=== PATIENT | male | born 1955 | race Two or more races ===

== ENCOUNTER 2018-02-21 10:36 | Inpatient (IN) | payer OTHER ==
[~2018-02-21] VITALS: Ht 172.7 cm; Wt 125.1 kg
[2018-02-21] MEDS ORDERED: SODIUM CHLORIDE 0.9% 1,000 ML IV ONE (10:47)
[2018-02-21] MEDS ORDERED: diphenhdrAMINE HCL 50 MG/1 ML VL IV ONE (11:00)
[2018-02-21] MEDS ORDERED: methylPREDNISolone SOD SUCC 125 MG/2 ML VL IV ONE (11:00)
[2018-02-21 11:05] LABS: Basophils # (auto) 0 uL; Basophils % (auto) 0.4 % (0.0-2.0); Eosinophils # (auto) 0.7 uL; Eosinophils % (auto) 7.1 % (0.0-7.0); Hematocrit 43.4 % (41.0-53.0); Hemoglobin 14.3 g/dL (13.5-17.5); Lymphocytes # (auto) 1.2 uL; Lymphocytes % (auto) 12.6 % (10.0-50.0); Mean Corpuscular Hemoglobin 27.9 pg (28.0-32.0); Mean Corpuscular Volume 84.5 fL (80.0-100.0); Monocytes # (auto) 0.6 uL; Monocytes % (auto) 6.6 % (0.0-12.0); Neutrophils # (auto) 6.8 uL; Neutrophils % (auto) 73.3 % (37.0-80.0); Nucleated Red Blood Cells % 0.2 %; Platelet Count (auto) 337 10^3/uL (140-450); Red Blood Cells 5.13 10^6/uL (4.5-5.90); Red Cell Distribution Width 14.5 % (11.8-14.3); White Blood Cell 9.3 10^3/uL (4.4-10.8)
[2018-02-21 11:30] LABS: Alanine Aminotransferase 69 U/L (16-61); Albumin 3.2 g/dL (3.4-5.0); Alkaline Phosphatase 96 U/L (45-117); Anion Gap 8 (5-15); Aspartate Aminotransferase 31 U/L (15-37); BUN/Creatinine Ratio 13.4; Bilirubin, Total 0.2 mg/dL (0.2-1.0); Blood Urea Nitrogen 11 mg/dL (7-18); Calcium 8.5 mg/dL (8.5-10.1); Carbon Dioxide 22 mmol/L (21-32); Chloride 111 mmol/L (98-107); GFR African American 122 mL/min; GFR Non-African American 101 mL/min; Glucose 111 mg/dL (74-106); Magnesium 2.6 mg/dL (1.6-2.6); Potassium 3.7 mmol/L (3.5-5.1); Sodium 141 mmol/L (136-145); Total Protein 7.5 g/dL (6.4-8.2)
[2018-02-21] MEDS ORDERED: FAMOTIDINE (10MG/ML) 2ML VL IV ONE (12:15)
[2018-02-21] MEDS ORDERED: HYDROcodone-ACET 5/325MG TAB PO PRN (13:45)
[2018-02-21] MEDS ORDERED: PROMETHAZINE HCL 25 MG/ML 1ML IV PRN (13:45)
[2018-02-21] MEDS ORDERED: ACETAMINOPHEN 500 MG TAB PO PRN (13:45)
[2018-02-21] MEDS ORDERED: TEMAZEPAM 15 MG CAP PO PRN (13:45)
[2018-02-21] MEDS ORDERED: LORazepam 0.5 MG TAB PO PRN (13:45)
[2018-02-21] MEDS ORDERED: LACTULOSE 20Gm/30ML SOLN PO PRN (13:45)
[2018-02-21] MEDS ORDERED: NITROGLYCERIN 0.4 MG SL TAB SL PRN (13:45)
[2018-02-21] MEDS ORDERED: MORPHINE SULFATE 4 MG/ML SYR/VIAL IV PRN ×2 (13:45)
[2018-02-21] MEDS: SODIUM CHLORIDE 0.9% 1,000 ML IV SCH ×2 (14:24→23:44)
[2018-02-21 15:28] VITALS: BP 144/95
[2018-02-21 17:00] VITALS: BP 144/95
[2018-02-21] MEDS ORDERED: ASPI81TA27 PO (17:17)
[2018-02-21] MEDS: methylPREDNISolone SOD SUCC 40 MG/ML VL IV SCH ×2 (17:49→23:40)
[2018-02-21 22:00] VITALS: BP 143/94
[2018-02-21] MEDS: FAMOTIDINE 20 MG TAB PO SCH (23:40)
[2018-02-22 05:00] VITALS: BP 127/75
[2018-02-22] MEDS: methylPREDNISolone SOD SUCC 40 MG/ML VL IV SCH ×2 (05:56→11:52)
[2018-02-22 07:19] LABS: Cholesterol 152 mg/dL (< 200); HDL Cholesterol 32 mg/dL (40-59); LDL Cholesterol 112 mg/dL (< 100); Triglycerides 96 mg/dL (< 150)
[2018-02-22 09:00] VITALS: BP 123/68
[2018-02-22] MEDS: FAMOTIDINE 20 MG TAB PO SCH (09:40)
[2018-02-22] MEDS ORDERED: ENOXAPARIN SOD 40 MG/0.4 ML SYRINGE SC SCH (10:00)
[2018-02-22 13:00] VITALS: BP 126/70
[2018-02-22] MEDS: SODIUM CHLORIDE 0.9% 1,000 ML IV SCH (14:38)
== END 2018-02-22 15:34 | disposition home or self-care (01) | DRG 811 ==
LOC: ER 10:39 → TELE 10:40 → TELE-CENTR 15:38
PROVIDERS: ADMIT Internal Medicine; ATTEND Internal Medicine
DX: T78.3XXA Angioneurotic edema, initial encounter (principal); Z68.41 Body mass index [BMI] 40.0-44.9, adult; T78.1XXA Other adverse food reactions, not elsewhere classified, initial encounter; E66.01 Morbid (severe) obesity due to excess calories; X58.XXXA Exposure to other specified factors, initial encounter; F12.90 Cannabis use, unspecified, uncomplicated; Z82.49 Family history of ischemic heart disease and other diseases of the circulatory system
CPT/HCPCS: 36415; 80053; 80061; 83735; 84484; 85025; 85652; 94761; 96361; 96375; J3490

== ENCOUNTER 2018-09-14 13:12 | Emergency (ER) | payer MEDICAID, OTHER ==
[~2018-09-14] VITALS: Ht 172.7 cm; Wt 113.4 kg
[~2018-09-14 13:12] MED LIST: ASPI81TA27 PO
[2018-09-14 13:33] VITALS: BP 107/79
== END 2018-09-14 15:28 | disposition home or self-care (01) ==
LOC: ER 13:12
DX: S00.452A Superficial foreign body of left ear, initial encounter (principal); F12.10 Cannabis abuse, uncomplicated; W22.8XXA Striking against or struck by other objects, initial encounter; Y93.89 Activity, other specified; Y92.89 Other specified places as the place of occurrence of the external cause; Y99.8 Other external cause status
CPT/HCPCS: 69200

== ENCOUNTER 2018-11-23 06:48 | Emergency (ER) | payer MEDICAID ==
[~2018-11-23] VITALS: Ht 172.7 cm; Wt 105.7 kg
[2018-11-23 08:51] LABS: Urine Bacteria FEW /hpf (None Seen); Urine Blood 1+ /uL (Negative); Urine Mucus FEW (None Seen); Urine Specific Gravity 1.018 (1.001-1.035); Urine WBC 2684 /hpf (0 - 3); Urine WBC Clumps PRESENT /hpf (None Seen)
[2018-11-23] MEDS ORDERED: cefTRIAXone SOD 1,000 MG VL IM ONE (09:30)
[2018-11-23 10:59] VITALS: BP 113/76
== END 2018-11-23 11:02 | disposition home or self-care (01) ==
LOC: ER 06:48
DX: N39.0 Urinary tract infection, site not specified (principal); Z85.46 Personal history of malignant neoplasm of prostate; F12.10 Cannabis abuse, uncomplicated
CPT/HCPCS: 81001; 96372; 99283; J0696

== ENCOUNTER 2018-11-23 19:22 | Emergency (ER) | payer MEDICAID ==
[~2018-11-23] VITALS: Ht 172.7 cm; Wt 106.1 kg
[2018-11-23] MEDS ORDERED: LIDOCAINE VISCOUS 2% 15ML UD MT ONE (21:00)
[2018-11-23] MEDS ORDERED: MEPERIDINE HCL (50 MG/ML) 1 ML VIAL IM ONE (21:15)
[2018-11-23] MEDS ORDERED: ONDANSETRON ODT 4 MG TAB PO ONE (21:15)
[2018-11-23] MEDS ORDERED: PHENAZOPYRIDINE HCL 100 MG TAB PO ONE (21:15)
[2018-11-23 22:08] LABS: Basophils # (auto) 0 uL; Basophils % (auto) 0.4 % (0.0-2.0); Eosinophils # (auto) 0 uL; Eosinophils % (auto) 0.1 % (0.0-7.0); Hematocrit 38.6 % (41.0-53.0); Hemoglobin 13.3 g/dL (13.5-17.5); Lymphocytes # (auto) 0.5 uL; Lymphocytes % (auto) 5.5 % (10.0-50.0); Mean Corpuscular Hemoglobin 28.5 pg (28.0-32.0); Mean Corpuscular Hgb Conc. 34.4 g/dL (32.0-36.0); Mean Corpuscular Volume 82.8 fL (80.0-100.0); Monocytes # (auto) 0.7 uL; Neutrophils # (auto) 8.8 uL; Nucleated Red Blood Cells % 0.1 %; Platelet Count (auto) 237 10^3/uL (140-450); Red Blood Cells 4.66 10^6/uL (4.5-5.90); Red Cell Distribution Width 14.3 % (11.8-14.3); White Blood Cell 10.1 10^3/uL (4.4-10.8)
[2018-11-23 22:09] VITALS: BP 109/49
[2018-11-23] MEDS ORDERED: AZITHROMYCIN 250 MG TAB PO ONE (22:15)
[2018-11-23] MEDS ORDERED: cefTRIAXone SOD 1,000 MG VL IM ONE (22:15)
[2018-11-23] MEDS ORDERED: LIDOCAINE 1% HCL (LOCAL ANESTH.) INJ 20ML MDV ONE (22:25)
[2018-11-23 22:26] LABS: Albumin 3.4 g/dL (3.4-5.0); BUN/Creatinine Ratio 18.1; Calcium 8.9 mg/dL (8.5-10.1); Potassium 3.7 mmol/L (3.5-5.1)
[2018-11-23 22:29] LABS: Bilirubin, Total 0.3 mg/dL (0.2-1.0); Total Protein 7.5 g/dL (6.4-8.2)
[2018-11-23 22:53] LABS: Urine Bacteria FEW /hpf (None Seen); Urine Blood 1+ /uL (Negative); Urine Specific Gravity 1.013 (1.001-1.035); Urine WBC 180 /hpf (0 - 3)
== END 2018-11-23 23:26 | disposition home or self-care (01) ==
LOC: ER 19:22
DX: N32.0 Bladder-neck obstruction (principal); N39.0 Urinary tract infection, site not specified; F12.10 Cannabis abuse, uncomplicated; Z79.82 Long term (current) use of aspirin
CPT/HCPCS: 36415; 51702; 74176; 80053; 81001; 85025; 96372; 99284; J0696; J2001; J2175; Q0162

== ENCOUNTER 2018-11-25 11:08 | Emergency (ER) | payer MEDICAID ==
[~2018-11-25] VITALS: Ht 172.7 cm; Wt 106.1 kg
[2018-11-25 11:14] VITALS: BP 128/81
== END 2018-11-25 11:26 | disposition home or self-care (01) ==
LOC: ER 11:08
DX: N39.0 Urinary tract infection, site not specified (principal); F12.10 Cannabis abuse, uncomplicated; Z46.6 Encounter for fitting and adjustment of urinary device
CPT/HCPCS: 51702

== ENCOUNTER 2018-11-25 14:39 | Emergency (ER) | payer MEDICAID ==
[~2018-11-25] VITALS: Ht 172.7 cm; Wt 105.7 kg
[2018-11-25 15:02] VITALS: BP 105/60
[2018-11-25] MEDS ORDERED: LIDOCAINE 2% JELLY 11ml (GLYDO) ONE (15:15)
[2018-11-25] MEDS ORDERED: traMADol HCL 50 MG TAB PO ONE ×2 (15:30→15:45)
[2018-11-25] MEDS ORDERED: LIDOCAINE HCL 2 %PF INJ 10ML AMP IJ ONE (15:30)
== END 2018-11-25 15:46 | disposition home or self-care (01) ==
LOC: ER 14:47
DX: R33.9 Retention of urine, unspecified (principal)
CPT/HCPCS: 51702

== ENCOUNTER 2018-12-14 07:42 | Emergency (ER) | payer MEDICAID ==
[~2018-12-14] VITALS: Ht 172.7 cm; Wt 105.7 kg
[2018-12-14 07:57] VITALS: BP 117/76
[2018-12-14 08:20] LABS: Urine Bacteria FEW /hpf (None Seen); Urine Blood 2+ /uL (Negative); Urine Budding Yeast MODERATE /hpf (None Seen); Urine Mucus FEW (None Seen); Urine Specific Gravity 1.014 (1.001-1.035); Urine WBC 440 /hpf (0 - 3)
[2018-12-14] MEDS ORDERED: cefTRIAXone SOD 1,000 MG VL IM ONE (08:30)
== END 2018-12-14 08:50 | disposition home or self-care (01) ==
LOC: ER 07:46
DX: N39.0 Urinary tract infection, site not specified (principal); Z76.0 Encounter for issue of repeat prescription; F12.10 Cannabis abuse, uncomplicated
CPT/HCPCS: 81001; 96372; 99283; J0696

== ENCOUNTER 2018-12-28 07:34 | Emergency (ER) | payer MEDICAID ==
[~2018-12-28] VITALS: Ht 172.7 cm; Wt 106.6 kg
[2018-12-28 07:35] VITALS: BP 115/64
== END 2018-12-28 08:52 | disposition home or self-care (01) ==
LOC: ER 07:34
DX: N39.0 Urinary tract infection, site not specified (principal); F12.10 Cannabis abuse, uncomplicated
CPT/HCPCS: 81002

== ENCOUNTER 2019-01-06 09:38 | Emergency (ER) | payer MEDICAID ==
[~2019-01-06] VITALS: Ht 172.7 cm; Wt 105.7 kg
[2019-01-06 11:07] LABS: Urine Bacteria FEW /hpf (None Seen); Urine Blood 2+ /uL (Negative); Urine Mucus FEW (None Seen); Urine Specific Gravity 1.024 (1.001-1.035); Urine WBC 589 /hpf (0 - 3)
[2019-01-06 12:00] VITALS: BP 156/90
[2019-01-06] MEDS ORDERED: cefTRIAXone SOD 1,000 MG VL IM ONE (12:00)
== END 2019-01-06 13:14 | disposition home or self-care (01) ==
LOC: ER 09:38
DX: N39.0 Urinary tract infection, site not specified (principal); F17.200 Nicotine dependence, unspecified, uncomplicated; Z87.440 Personal history of urinary (tract) infections
CPT/HCPCS: 81001; 87086; 96372; 99283; J0696